=== PATIENT | female | born 2000 | race Two or more races ===

== ENCOUNTER 2025-01-07 16:18 | Emergency (ER) | payer MEDICAID, SELFPAY ==
[2025-01-07] VITALS (10 sets, daily range): BP systolic 99–132; BP diastolic 66–88; PULSE 75–90; RESP 12–19; TEMP 36.6–37.1; O2SAT 98–100; BMI 37.8
--- NOTE | 2025-01-07 16:53 | EDRME_ITS ---
Rapid Medical Screening Exam RME Arrival date/time: 01/07/25 16:18 Chief Complaint: General Adult/Misc Complain Time Seen by Provider: 01/07/25 16:33 Vital signs: Vital Signs Temperature 98 F 01/07/25 16:49 Pulse Rate 87 01/07/25 16:49 Respiratory Rate 16 01/07/25 16:49 Blood Pressure 132/83 H 01/07/25 16:49 Pulse Oximetry (%) 100 01/07/25 16:49 Oxygen Delivery Method Room Air 01/07/25 16:49 RME Narrative: Referred to ED for low hemoglobin of 6.2 on lab draw today. Patient reports 3- week history of vaginal bleeding, now resolved.
[2025-01-07 17:46] LABS: Basophils # (Auto) 0.1 Thou/mm3 (0.0-0.2); Basophils % (Auto) 1 % (0-2.5); Eosinophils # (Auto) 0.3 Thou/mm3 (0.0-0.5); Eosinophils % (Auto) 3 % (0-10); Hematocrit 21.7 % (36.0-46.0); Immature Granulocytes % (Auto) 0 % (0-0); Immature Granulocytes Auto 0.03 Thou/mm3 (0.00-0.00); Lymphocytes # (Auto) 2.8 Thou/mm3 (1.0-4.8); Lymphocytes % (Auto) 30 % (10-50); Mean Corpuscular HGB Conc 29.5 g/dl (31.0-37.0); Mean Corpuscular Hemoglobin 21.4 pg (25.0-35.0); Mean Corpuscular Volume 73 fL (80-100); Monocytes # (Auto) 0.5 Thou/mm3 (0.0-0.8); Monocytes % (Auto) 5 % (0-12); Neutrophils # (Auto) 5.7 Thou/mm3 (1.8-7.7); Neutrophils % (Auto) 61 % (37-80); Nucleated Red Blood Cell # 0.02 Thou/mm3 (0.00-0.00); Nucleated Red Blood Cell % 0 /100 WBC (0); Platelet Count 338 Thou/mm3 (140-440); RDW Standard Deviation 45.3 fL (36.4-46.3); Red Blood Count 2.99 Miln/mm3 (4.00-5.20); White Blood Count 9.4 Thou/mm3 (3.6-11.0)
[2025-01-07 17:54] LABS: Hemoglobin 6.4 g/dL (12.0-16.0)
[2025-01-07 17:55] LABS: Partial Thromboplastin Time 24.5 Seconds (22.0-36.0); Prothrombin Time 11.2 Seconds (9.0-12.2)
[2025-01-07 17:57] LABS: Path Review Blood Smear Sent to Pathologist
--- NOTE | 2025-01-07 17:58 | PC.NURSE ---
CALL FROM [facility] IN LAB. PT'S H/H 6.4/21.7. INFO PLACED IN PROVIDER'S NOTES.
[2025-01-07 17:59] LABS: Alanine Aminotransferase 17 U/L (10-49); Albumin, Serum 4.3 gm/dL (3.5-5.0); Albumin/Globulin Ratio 1.4 (1.2-2.2); Alkaline Phosphatase 77 U/L (46-116); Anion Gap 5 (7-16); Aspartate Amino Transferase 13 U/L (0-34); BUN/Creatinine Ratio 16 Ratio (12-20); Bilirubin,Total 0.4 mg/dL (0.3-1.2); Blood Urea Nitrogen 8 mg/dL (9-23); Calcium 8.9 mg/dL (8.3-10.6); Calcium (Corrected) 8.9 mg/dL (8.5-10.1); Carbon Dioxide 26.1 mMol/L (20.0-31.0); Chloride 107 mMol/L (98-107); Creatinine (Component) 0.5 mg/dL (0.6-1.3); Estimated Creatinine Clearance 200.9 mL/min (>60); Globulin 3.1 gm/dL (2.3-3.5); Glucose 103 mg/dL (74-106); HCG,Qualitative Serum Negative; Osmolality,Calculated 273 (275-295); Potassium 3.9 mMol/L (3.4-5.1); Sodium 138 mMol/L (136-145); Total Protein 7.4 gm/dL (5.7-8.2); eGFR > 60 See Note
--- NOTE | 2025-01-07 18:15 | EDNOTE_ITS ---
ED General RME/HPI General Chief complaint: General Adult/Misc Complain Stated complaint: LOW HEMOGLOBIN, C/O DIZZINESS, SOB Time Seen by Provider: 01/07/25 16:33 Source: patient, RN notes reviewed and old records reviewed Arrival date/time: 01/07/25 16:18 Mode of arrival: ambulatory Limitations: no limitations RME / HPI RME / HPI narrative: 24yof presents to ED for low hemoglobin of 6.2 on lab draw today, referred by PCP. Patient reports 3-week history of vaginal bleeding (end of November through mid-December). Hx menorrhagia 2/2 pituitary tumor. Patient's director part recently changed her meds which she believes triggered her longer cycle. Patient c/o mild fatigue, shortness of breath and dizziness. Denies syncope. Denies vaginal bleeding at this time. She has been taking iron supplements 3x daily for the past 2 weeks. Hx blood transfusion in past. Related Data Previous Rx's ?Medication ?Instructions ?Recorded Ethinyl Estradiol/Norgestimate * 1 tab PO BID #28 tabs 06/11/15 (ORTHO CYCLEN *) ferrous sulfate 325 mg (65 mg 325 mg PO BIDWM #30 tabs 06/12/15 iron) tablet (Feosol) ibuprofen 600 mg tablet 1 tab PO Q8HR PRN INFLAMMATI ON #30 01/24/16 tabs Allergies Allergy/AdvReac Type Severity Reaction Status Date / Time No Known Allergies Allergy Verified 01/07/25 16:21 Review of Systems Review of Systems Systems Reviewed: All systems reviewed, normal except as documented Constitutional Constitutional: Reports fatigue and Denies headache(s) ENT Ears, Nose, Mouth, and Throat: Denies headache(s) and Reports vertigo Cardiovascular Cardiovascular: Denies chest pain, Reports dyspnea and Denies syncope Respiratory Respiratory: Reports dyspnea Gastrointestinal Gastrointestinal: Reports nausea and Denies vomiting Neurologic Neurologic: Denies headache(s), Denies syncope and Reports vertigo Endocrine Endocrine: Reports fatigue Past Medical History Past Medical History NEUROLOGIC: Positive Neurological Disorders (Pituitary tumor) GASTROINTESTINAL: Positive Obesity HEMATOLOGIC: Positive Anemia Social History SMOKING STATUS: Never smoker SUBSTANCE USE: does not use ALCOHOL: Never ED Exam General Limitations: Present no limitations General appearance: Present alert, in no apparent distress and obese Head Head exam: Present atraumatic and normocephalic Eye Eye exam: Present normal appearance, PERRL and EOMI ENT ENT exam: Present normal exam and mucous membranes moist Neck Neck exam: Present normal inspection and full ROM Chest Chest inspection: Present normal inspection and symmetric chest wall rise Respiratory Respiratory exam: Present normal lung sounds bilaterally; Absent respiratory distress Cardiovascular Cardiovascular exam: Present regular rate and normal rhythm Abdominal Exam Abdominal exam: Present soft; Absent distention or tenderness Extremities Exam Extremities exam: Present normal inspection and full ROM Neurological Exam Neurological exam: Present alert and oriented X3 Psychiatric Psychiatric exam: Present normal affect and normal mood Skin Skin exam: Present warm, dry, intact and pallor (Mild) Course Course Course Narrative: 2240: Patient reassessed. Resting comfortably in ED bed first unit of blood transfused, RN soon to start second unit. 0: Patient reassessed. Resting comfortably, no complaints at this time. 2nd unit prbcs infusing. Quality Measures none Orders Category Date Time Status CBC Stat Lab 01/07/25 17:28 Completed CMP [Comprehensive Metabolic Panel] Stat Lab 01/07/25 17:28 Completed HCG,Qualitative Serum Stat Lab 01/07/25 17:28 Completed Partial Thromboplastin Time Stat Lab 01/07/25 17:28 Completed Path Review Blood Smear Stat Lab 01/07/25 17:28 Completed Prothrombin Time with INR Stat Lab 01/07/25 17:28 Completed Type and Screen Stat Lab 01/07/25 17:28 Completed prbc [Red Blood Cells] Stat Lab 01/07/25 17:28 Completed Vital Signs Vital signs: Vital Signs Temperature 98 F 01/07/25 16:49 Pulse Rate 87 01/07/25 16:49 Respiratory Rate 16 01/07/25 16:49 Blood Pressure 132/83 H 01/07/25 16:49 Pulse Oximetry (%) 100 01/07/25 16:49 Oxygen Delivery Method Room Air 01/07/25 16:49 [facility] Patient data External records reviewed:: [facility] previous records (04/24/2019 ED visit for new) Clinical information provided by:: patient Social determinants that could affect healthcare access:: none Patient has the following chronic illnesses:: Anemia, pituitary tumor, obesity How is presenting disease/condition affected by chronic disease/condition?: c aused by Evaluation data The following diagnostics were reviewed and interpreted by me:: lab results Lab and/or radiology exams considered but not ordered:: None Interpretation Summary: Hemoglobin 6.4 Medications Medications considered but not ordered:: None Medication administrations:: Above medications administered in ED Consultations Consultation(s) initiated? (list below): No Diagnosis Differential Diagnosis ED Complaint MDM: Anemia, menorrhagia, fibroid, acute bleed Most likely diagnosis given after review of the tests above:: Anemia Admission Indicated Admission indicated?: not indicated Explain why admission is indicated or not indicated:: Patient is clinically stable for outpatient management Admission Request Was there a request for admission?: No Disposition Plan Disposition Plan: Discharge Discharge Attestation Discharge Attestation: The patient and all family members were given an opportunity to ask questions and understood the discharge instructions. Discharge instructions specifically effects, indications for sooner follow up or return to the emergency department, and the expected course of current diagnosis. Patient condition: Stable Medical Decision Making MDM Narrative MDM Narrative: 24yof presents to ED for low hemoglobin of 6.2 on lab draw today, referred by PCP. Patient reports 3-week history of vaginal bleeding (end of November through mid-December). Hx menorrhagia 2/2 pituitary tumor. Patient's director part recently changed her meds which she believes triggered her longer cycle. Patient c/o mild fatigue, shortness of breath and dizziness. Denies syncope. Denies vaginal bleeding at this time. She has been taking iron supplements 3x daily for the past 2 weeks. Hx blood transfusion in past. Transfusion completed. Patient tolerated well, no complications. Recommended continuing iron supplements as prescribed. Follow-up closely with PCP. Stable for discharge, RTED precautions given. Differential Diagnosis Differential Diagnosis: Anemia, menorrhagia, fibroid, acute bleed Lab Data 01/07/25 17:28 01/07/25 17:28 Labs: Lab Results 01/07/25 Range/Units 17:28 WBC 9.4 (3.6-11.0) Thou/mm3 RBC 2.99 L (4.00-5.20) Miln/mm3 Hgb 6.4 L* (12.0-16.0) g/dL Hct 21.7 L* (36.0-46.0) % MCV 73 L (80-100) fL MCH 21.4 L (25.0-35.0) pg MCHC 29.5 L (31.0-37.0) g/dl RDW Std Deviation 45.3 (36.4-46.3) fL Plt Count 338 (140-440) Thou/mm3 Neut % (Auto) 61 (37-80) % Lymph % (Auto) 30 (10-50) % [place] % (Auto) 5 (0-12) % Eos % (Auto) 3 (0-10) % Baso % (Auto) 1 (0-2.5) % Neut # (Auto) 5.7 (1.8-7.7) Thou/mm3 Lymph # (Auto) 2.8 (1.0-4.8) Thou/mm3 Cascade # (Auto) 0.5 (0.0-0.8) Thou/mm3 Eos # (Auto) 0.3 (0.0-0.5) Thou/mm3 Baso # (Auto) 0.1 (0.0-0.2) Thou/mm3 Immature Gran # (Auto) 0.03 H (0.00-0.00) Thou/mm3 Absolute Nucleated RBC 0.02 H (0.00-0.00) Thou/mm3 Immature Gran % 0 (0-0) % Nucleated RBC % 0 (0) /100 WBC Smear Path Review Sent to Pathologist PT 11.2 (9.0-12.2) Seconds INR 1.0 (0.9-1.3) APTT 24.5 (22.0-36.0) Seconds Sodium 138 (136-145) mMol/L Potassium 3.9 (3.4-5.1) mMol/L Chloride 107 (98-107) mMol/L Carbon Dioxide 26.1 (20.0-31.0) mMol/L Anion Gap 5 L (7-16) BUN 8 L (9-23) mg/dL Creatinine 0.5 L (0.6-1.3) mg/dL Estim Creat Clear Calc 200.9 (>60) mL/min eGFR > 60 (60 - ) See Note BUN/Creatinine Ratio 16 (12-20) Ratio Glucose 103 (74-106) mg/dL Calculated Osmolality 273 L (275-295) Calcium 8.9 (8.3-10.6) mg/dL Corrected Calcium 8.9 (8.5-10.1) mg/dL Total Bilirubin 0.4 (0.3-1.2) mg/dL AST 13 (0-34) U/L ALT 17 (10-49) U/L Alkaline Phosphatase 77 (46-116) U/L Total Protein 7.4 (5.7-8.2) gm/dL Albumin 4.3 (3.5-5.0) gm/dL Globulin 3.1 (2.3-3.5) gm/dL Albumin/Globulin Ratio 1.4 (1.2-2.2) HCG, Qual Negative Blood Type A Positive Antibody Screen NEGATIVE Crossmatch See Detail Blood Bank Wristband ID Yes Critical Care Time Critical Care Time Critical Care Time: Yes Total Critical Care Time (min.): 55 Attestation: The high probability of sudden, clinically significant deterioration in the patient's condition required the highest level of my preparedness to intervene urgently. The services I provided to this patient were to treat and/or prevent clinically significant deterioration. Services included the following: chart data review, reviewing nursing notes and/or old charts, documentation time, network pricing consultant collaboration regarding findings and treatment options, medication orders and management, direct patient care, vital sign assessments and ordering, interpreting and reviewing diagnostic studies and lab tests. Aggregate critical care time includes only time during which I was engaged in work directly related to the patient's care, as described above, whether at bedside or elsewhere in the Emergency Department. It did not include time spent performing other reported procedures or the services of residents, students, nurses or physician assistants. Discharge Plan Plan Patient Disposition: HOME (Self Care) Patient condition on transfer: Stable Prescriptions/Referrals Prescriptions/Med Rec: No Action Ethinyl Estradiol/Norgestimate * (ORTHO CYCLEN *) 1 TAB tablet 1 tab PO BID Qty: 28 1RF ferrous sulfate [Feosol] 1 TAB tablet 325 mg PO BIDWM Qty: 30 1RF ibuprofen 600 MG tablet 1 tab PO Q8HR PRN (Reason: INFLAMMATION) Qty: 30 0RF Referrals: No Primary/Family,Physician [Primary Care Provider] - In 1 week Problem List Clinical Impression: Anemia Patient/Caregiver Discharge Instructions Education Materials: Anemia Additional Instructions: Continue to take your iron supplements as prescribed. Print Language: [place] Stand Alone Forms: Heather Award Info., Patient Portal Info Letter PA/MANAGER STRATEGY & ACCOUNT Supervising Physician PA/MANAGER STRATEGY & ACCOUNT Supervising Physician: Quynh
[2025-01-08 01:21] VITALS: BP 116/76; PULSE 76; RESP 18; TEMP 36.8; O2SAT 98
== END 2025-01-08 01:22 | disposition home or self-care (01) ==
PROVIDERS: Physician Assistant; Emergency Provider Emergency Medicine
DX: D64.9 Anemia, unspecified (principal)
CPT/HCPCS: 36415; 36430; 80053; 84703; 85025; 85610; 85730; 86850; 86900; 86901; 86923; 99291; P9016

== ENCOUNTER → 2025-01-23 | Outpatient (CLI) | payer MEDICAID, SELFPAY ==
--- NOTE | 2025-01-23 11:30 | XR_ITS ---
Examination: Pelvic ultrasound, transabdominal, complete Technique: Transabdominal ultrasound of the pelvis performed using grayscale imaging Date and time of exam: January 23, 2025 1113 hrs. Indications: Irregular heavy menses 11 years Findings: Uterus 7.2 cm endometrial stripe 0.8 cm No uterine mass or intrauterine gestation Right ovary 3.8 cm arterial flow small follicles Left ovary 4.2 cm arterial flow small follicles Impression: Negative study
== END | disposition home or self-care (01) ==
LOC: CDIM 11:22
PROVIDERS: PCP Physician Assistant; Referring Provider Physician Assistant; Visit Provider Physician Assistant
DX: D64.9 Anemia, unspecified (principal); N92.1 Excessive and frequent menstruation with irregular cycle
CPT/HCPCS: 76856